=== PATIENT | female | born 1985 | race Caucasian/White ===

== ENCOUNTER 2017-04-02 14:21 | Emergency (ER) | payer MEDICAID, OTHER ==
[~2017-04-02 14:21] MED LIST: AUGMENTIN 875-11 TAB PO; BACTRIM1 TAB PO; COLACE100 MG PO; COMPAZINE10 M PO; FERROUS SULFATE1 TAB PO; FLAGYL500 MG PO; IBUPROFEN800 MG PO; NO HOME MEDS; NO MEDICATIONS; NORCO 5/325 TAB1 TAB PO; NORCO 5/3251 TA2 PO; OXYCODONE/APAP PO; PRENA1 CHEW TABL1 MG PO; PRILOSEC20 MG PO; TRAMADOL HCL50 MG PO; VIBRAMYCIN100 MG PO
[2017-04-02] MEDS ORDERED: NO HOME MEDICATION XX (15:41)
[2017-04-02] MEDS ORDERED: TRAMADOL HCL50 M2 PO (16:35)
[2017-04-02] MEDS ORDERED: IBUPROFEN800 M1 PO (16:35)
== END 2017-04-02 17:01 ==
LOC: EDMED 14:21
DX: S16.1XXA Strain of muscle, fascia and tendon at neck level, initial encounter (principal); M54.5 Low back pain; V49.40XA Driver injured in collision with unspecified motor vehicles in traffic accident, initial encounter; Y92.410 Unspecified street and highway as the place of occurrence of the external cause